=== PATIENT | female | born 1990 | race Caucasian/White ===

== ENCOUNTER 2020-10-06 19:15 | Outpatient (CLI) | payer OTHER ==
[~2020-10-06 19:15] MED LIST: FERROUS SULFAT325 M2 PO
[2020-10-23] MEDS ORDERED: IBUPROFEN800 MG PO (11:31)
[2020-10-23] MEDS ORDERED: COLACE100 MG PO (11:31)
[2020-10-23] MEDS ORDERED: HYDROCODON-ACE1 EAC4 PO (11:31)
== END 2020-10-06 20:16 | disposition home or self-care (01) ==
LOC: GENOP 19:15
DX: O36.8130 Decreased fetal movements, third trimester, not applicable or unspecified (principal); Z3A.34 34 weeks gestation of pregnancy
CPT/HCPCS: 59025; 82962

== ENCOUNTER → 2020-10-22 | Outpatient (CLI) | payer OTHER ==
[~2020-10-22] MED LIST changes: +COLACE100 MG PO; +GLUCOPHAGE XR500 M1 PO; +HYDROCODON-ACE1 EAC4 PO; +IBUPROFEN800 MG PO; +ONDANSETRON4 MG/2 M2 PO; +PRILOSEC OTC20 MG PO
[2020-10-22 14:28] LABS: HEMOGLOBIN 10.5 gm/dl (12.3-15.3); RED BLOOD COUNT 3.9 M/UL (4.00-5.10); WHITE BLOOD COUNT 7.1 K/UL (4.5-11.0)
[2020-10-22 14:48] LABS: BUN/CREATININE RATIO 8 (0-10)
== END ==
LOC: GENOP 13:13
PROVIDERS: Obstetrics & Gynecology
DX: Z53.8 Procedure and treatment not carried out for other reasons (principal)
CPT/HCPCS: 36415; 80048; 81001; 85025

== ENCOUNTER 2020-10-23 05:08 | Inpatient (IN) | payer OTHER ==
[~2020-10-23] VITALS: Ht 152.4 cm; Wt 74.8 kg
[~2020-10-23 05:08] MED LIST changes: -COLACE100 MG PO; -GLUCOPHAGE XR500 M1 PO; -HYDROCODON-ACE1 EAC4 PO; -IBUPROFEN800 MG PO; -ONDANSETRON4 MG/2 M2 PO; -PRILOSEC OTC20 MG PO
[2020-10-23] MEDS ORDERED: PRILOSEC OTC20 MG PO (06:28)
[2020-10-23] MEDS ORDERED: GLUCOPHAGE XR500 M1 PO (06:28)
[2020-10-23] MEDS ORDERED: HYDROCODON-ACE1 EAC4 PO (11:31)
[2020-10-23] MEDS ORDERED: IBUPROFEN800 MG PO (11:31)
[2020-10-23] MEDS ORDERED: COLACE100 MG PO (11:31)
[2020-10-24 06:03] LABS: HEMOGLOBIN 8.8 gm/dl (12.3-15.3)
[2020-10-24] MEDS ORDERED: ONDANSETRON4 MG/2 M2 PO (12:35)
== END 2020-10-25 14:14 | disposition home or self-care (01) | DRG 788 ==
LOC: OB 05:08
PROVIDERS: ADMIT Obstetrics & Gynecology
PROC: 10D00Z1 Extraction of Products of Conception, Low, Open Approach (ICD-10-PCS; principal; 2020-10-23 09:33)
PROC: 3E02340 Introduction of Influenza Vaccine into Muscle, Percutaneous Approach (ICD-10-PCS; 2020-10-24)
PROC: 3E0234Z Introduction of Serum, Toxoid and Vaccine into Muscle, Percutaneous Approach (ICD-10-PCS; 2020-10-24)
DX: O34.211 Maternal care for low transverse scar from previous cesarean delivery (principal); N85.8 Other specified noninflammatory disorders of uterus; Z3A.37 37 weeks gestation of pregnancy; Z37.0 Single live birth; O24.429 Gestational diabetes mellitus in childbirth, unspecified control; O99.02 Anemia complicating childbirth; D64.9 Anemia, unspecified; Z23 Encounter for immunization
CPT/HCPCS: 36415; 80048; 81001; 82800; 82962; 85014; 85018; 85025; 90471; 90472; 90686; C9113; J0690; J1170; J1885; J2405; J2550; J2590; J3010; J7030; J7120